=== PATIENT | male | born 1965 | race Caucasian/White ===

== ENCOUNTER → 2024-09-20 | Outpatient (CLI) | payer OTHER ==
--- NOTE | 2024-09-20 09:51 | MR ---
EXAMINATION TYPE: MR cervical spine wo con DATE OF EXAM: 09/20/2024 8:37 AM COMPARISON: None. CLINICAL INDICATION: Male, 58 years old with history of M54.12 RADICULOPATHY CERVICAL, Chronic neck p ain, numbness in hands, recent fall May 2024. TECHNIQUE: Multiplanar, multisequence images of the cervical spine were acquired without contrast. FINDINGS: No craniocervical junction abnormality, predental space widening, or prevertebral soft tissue swellin g. Prominent degenerative change of the C1 dens articulation. Moderate degenerative disc disease and endplate spondylosis especially C3-C5 levels with desiccated d iscs and disc osteophyte complex formation. Degenerative disc desiccation elsewhere throughout the ce rvical spine. 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 Scattered moderate facet and uncovertebral joint arthropathy is present throughout. Degenerative grade 1 retrolisthesis C3-C4 and grade 1 anterolisthesis C6-C7. Grade 1 retrolisthesis and disc osteophyte complex at C3-C4 results in a focal moderate spinal canal stenosis with negative AP canal dimension of 6 mm. Prominent abutment and flattening of the ventral c ord here. Disc osteophyte complex at C4-C5 also contributes to moderate focal spinal canal stenosis with AP can al dimension of 5.5 mm. Prominent flattening of the cord. Possible minimal bright cord signal sagitta l image 9. Not clearly confirmed on axial images. At C3-C4, uncovertebral joint and facet arthropathy contributes to [id number] right and mild le ft neural foraminal stenosis. At C4-C5, uncovertebral joint and facet arthropathy contribute to moderate right and mild left neural foraminal stenosis. At C6-C7, uncovertebral joint and facet arthropathy contribute to mild left neuroforaminal stenosis. Heterogeneous marrow signal suggesting patchy red marrow hyperplasia. IMPRESSION: 1. Moderate spondylotic change especially C3-C5 levels, superimposed on a congenital spinal canal tasha rowing. [place] AP canal dimension is 8 mm. 2. Degenerative grade 1 spondylolisthesis C3-C4 and C6-C7. 3. Moderate focal spinal canal stenoses at C3-C4 (AP canal narrowed to 6 mm) and at C4-C5 (AP canal n arrowed to 5.5 mm). There is mild flattening of the cord at both of these levels and possible subtle increased cord signal/edema opposite C4-C5. Not clearly confirmed on axial series. Correlate for any myelopathic symptoms. 4. Variable mild and moderate neuroforaminal stenoses as outlined above. [facility], , 09/20/2024 9:49 AM
== END | disposition home or self-care (01) ==
LOC: RADMRIMAIN 07:58
PROVIDERS: ATTEND Family Medicine
DX: M48.02 Spinal stenosis, cervical region (principal); M47.22 Other spondylosis with radiculopathy, cervical region; M43.12 Spondylolisthesis, cervical region
CPT/HCPCS: 72141